=== PATIENT | female | born 1990 | race Caucasian/White ===

== ENCOUNTER 2017-10-30 15:11 | Emergency (ER) | payer SELFPAY ==
[~2017-10-30] VITALS: Ht 157.5 cm; Wt 66.2 kg
[2017-10-30 15:13] VITALS: BP 119/78
[2017-10-30 16:00] LABS: Eosinophils # (auto) 0.1 uL; Hemoglobin 10.1 g/dL (12.2-16.2); Lymphocytes # (auto) 0.6 uL; Mean Corpuscular Hgb Conc. 31.4 g/dL (32.0-36.0); Neutrophils % (auto) 86.4 % (37.0-80.0); White Blood Cell 10.9 10^3/uL (4.4-10.8)
[2017-10-30 16:01] LABS: Basophils # (auto) 0.1 uL; Basophils % (auto) 0.5 % (0.0-2.0); Eosinophils % (auto) 0.8 % (0.0-7.0); Hematocrit 32.3 % (36.0-46.0); Lymphocytes % (auto) 5.7 % (10.0-50.0); Mean Corpuscular Hemoglobin 22.1 pg (28.0-32.0); Mean Corpuscular Volume 70.6 fL (80.0-100.0); Monocytes # (auto) 0.7 uL; Monocytes % (auto) 6.6 % (0.0-12.0); Neutrophils # (auto) 9.4 uL; Platelet Count (auto) 398 10^3/uL (140-450); Red Blood Cells 4.57 10^6/uL (4.0-5.20); Red Cell Distribution Width 18.4 % (11.8-14.3)
[2017-10-30 16:10] LABS: Albumin 3.3 g/dL (3.4-5.0); BUN/Creatinine Ratio 9.9; Calcium 8.3 mg/dL (8.5-10.1); Potassium 3.5 mmol/L (3.5-5.1)
[2017-10-30 16:13] LABS: Bilirubin, Total 0.4 mg/dL (0.2-1.0); Total Protein 7.4 g/dL (6.4-8.2)
[2017-10-30 17:22] LABS: Urine Bacteria NONE SEEN /hpf (None Seen); Urine Blood Negative /uL (Negative); Urine Hyaline Cast FEW /lpf (0 - 2); Urine Mucus MODERATE (None Seen); Urine Specific Gravity 1.048 (1.001-1.035); Urine WBC 7 /hpf (0 - 5)
== END 2017-10-30 17:30 | disposition left against medical advice (07) ==
LOC: ER 15:11
DX: R11.2 Nausea with vomiting, unspecified (principal); R10.9 Unspecified abdominal pain; Z53.21 Procedure and treatment not carried out due to patient leaving prior to being seen by health care provider
CPT/HCPCS: 36415; 80053; 81001; 85025

== ENCOUNTER 2019-01-25 11:08 | Inpatient (IN) | payer MEDICAID, OTHER ==
[~2019-01-25] VITALS: Ht 157.5 cm; Wt 24.9 kg
[2019-01-25] MEDS ORDERED: ONDANSETRON HCL 4 MG/2 ML VIAL IV ONE (12:15)
[2019-01-25] MEDS ORDERED: MORPHINE SULF INJ 2 MG/ML SYRINGE 1ML IV ONE (12:15)
[2019-01-25 12:27] LABS: Basophils # (auto) 0 uL; Basophils % (auto) 0.3 % (0.0-2.0); Eosinophils # (auto) 0 uL; Eosinophils % (auto) 0.1 % (0.0-7.0); Hematocrit 39.7 % (36.0-46.0); Lymphocytes # (auto) 0.6 uL; Lymphocytes % (auto) 10.9 % (10.0-50.0); Mean Corpuscular Hemoglobin 28.7 pg (28.0-32.0); Mean Corpuscular Hgb Conc. 32.8 g/dL (32.0-36.0); Mean Corpuscular Volume 87.6 fL (80.0-100.0); Monocytes # (auto) 0.3 uL; Monocytes % (auto) 6.2 % (0.0-12.0); Neutrophils # (auto) 4.2 uL; Neutrophils % (auto) 82.5 % (37.0-80.0); Nucleated Red Blood Cells % 0.1 %; Platelet Count (auto) 272 10^3/uL (140-450); Red Blood Cells 4.53 10^6/uL (4.0-5.20); Red Cell Distribution Width 16.2 % (11.8-14.3); White Blood Cell 5.1 10^3/uL (4.4-10.8)
[2019-01-25 12:51] LABS: Albumin 4.1 g/dL (3.4-5.0); BUN/Creatinine Ratio 17.1; Bilirubin, Total 0.3 mg/dL (0.2-1.0); Calcium 9.7 mg/dL (8.5-10.1); Magnesium 2.2 mg/dL (1.6-2.6)
[2019-01-25] MEDS ORDERED: IOHEXOL 300 MG/ML 100ML BOTTLE IJ ONE (14:21)
[2019-01-25] MEDS ORDERED: LORazepam 2MG/ML-1ML VIAL ONE (15:14)
[2019-01-25] MEDS ORDERED: LORazepam 2MG/ML-1ML VIAL IV ONE (15:15)
[2019-01-25] MEDS ORDERED: LORazepam 0.5 MG TAB PO PRN (17:00)
[2019-01-25] MEDS: MORPHINE SULF INJ 2 MG/ML SYRINGE 1ML IV PRN (20:12)
[2019-01-25] MEDS: ONDANSETRON HCL 4 MG/2 ML VIAL IV PRN (20:13)
--- NOTE | 2019-01-25 20:30 | NUR ---
Telemetry admit from ER [facility] admitted to Telemetry unit after SBAR received. Patient oriented to Ernestine Malik, primary RN, unit, room, bed, and unit policies regarding patient care and visiting hours. Patient now on continuous telemetry monitoring, tele box 79 and telemetry reading on arrival to unit is NSR 82. Patient encouraged to call if they need something. All questions and concerns addressed, patient verbalized understanding. Note:
[2019-01-25] MEDS: FAMOTIDINE 20 MG TAB PO SCH (21:29)
[2019-01-25 22:00] VITALS: BP 123/76
[2019-01-26] MEDS: MORPHINE SULF INJ 2 MG/ML SYRINGE 1ML IV PRN ×2 (04:15→08:23)
[2019-01-26 05:00] VITALS: BP 118/70
[2019-01-26 06:28] LABS: Basophils # (auto) 0 uL; Basophils % (auto) 0.6 % (0.0-2.0); Eosinophils # (auto) 0.1 uL; Eosinophils % (auto) 1.9 % (0.0-7.0); Hematocrit 34.5 % (36.0-46.0); Hemoglobin 11.4 g/dL (12.2-16.2); Lymphocytes % (auto) 22.4 % (10.0-50.0); Mean Corpuscular Hemoglobin 28.6 pg (28.0-32.0); Mean Corpuscular Hgb Conc. 33.1 g/dL (32.0-36.0); Mean Corpuscular Volume 86.5 fL (80.0-100.0); Monocytes # (auto) 0.5 uL; Monocytes % (auto) 11.2 % (0.0-12.0); Neutrophils # (auto) 2.8 uL; Neutrophils % (auto) 63.9 % (37.0-80.0); Platelet Count (auto) 226 10^3/uL (140-450); Red Blood Cells 3.99 10^6/uL (4.0-5.20); Red Cell Distribution Width 15.9 % (11.8-14.3); White Blood Cell 4.4 10^3/uL (4.4-10.8)
[2019-01-26 06:29] LABS: Potassium 3.3 mmol/L (3.5-5.1)
[2019-01-26 06:33] LABS: Albumin 3.1 g/dL (3.4-5.0); Calcium 8.2 mg/dL (8.5-10.1)
[2019-01-26 06:36] LABS: Bilirubin, Total 0.3 mg/dL (0.2-1.0); Total Protein 6.8 g/dL (6.4-8.2)
--- NOTE | 2019-01-26 08:00 | NUR ---
Opening Shift Note Assumed care of patient, awake and alert. No S/S of distress/SOB or pain. Instructed on POC and to call for assist PRN, will continue to monitor for changes Q1hr and PRN.
[2019-01-26] MEDS: ONDANSETRON HCL 4 MG/2 ML VIAL IV PRN (08:23)
[2019-01-26 09:00] VITALS: BP 107/72
[2019-01-26] MEDS: FAMOTIDINE 20 MG TAB PO SCH (09:35)
[2019-01-26] MEDS ORDERED: ENOXAPARIN SOD 40 MG/0.4 ML SYRINGE SC SCH (10:00)
[2019-01-26 11:46] VITALS: BP 107/72
[2019-01-26 13:00] VITALS: BP 109/77
--- NOTE | 2019-01-26 13:15 | NUR ---
Discharge Patient seen by Dr. Harrison and Dr. Church, cleared for discharge.
--- NOTE | 2019-01-26 15:20 | NUR ---
Discharge instructions given as ordered. Encourage to follow up with PMD as instructed. All questions and concerns addressed. Patient verbalized understanding. Medication reconciliation form completed and copy given to patient. IV removed with catheter intact, and pressure dressing applied. Telemetry unit returned to ICU. Patient taken to vehicle via wheelchair with all personal belongings, accompanied by staff and family member. No distress noted at time of departure.
== END 2019-01-26 15:20 | disposition home or self-care (01) | DRG 249 ==
LOC: EDBD 11:08 → ER 11:08 → TELE 11:09 → TELE-WESTW 20:32
PROVIDERS: ADMIT Internal Medicine; ATTEND Internal Medicine
DX: K52.9 Noninfective gastroenteritis and colitis, unspecified (principal); C78.7 Secondary malignant neoplasm of liver and intrahepatic bile duct; C18.7 Malignant neoplasm of sigmoid colon; R16.0 Hepatomegaly, not elsewhere classified; F17.200 Nicotine dependence, unspecified, uncomplicated; R11.2 Nausea with vomiting, unspecified; F41.9 Anxiety disorder, unspecified; M43.06 Spondylolysis, lumbar region; Z82.49 Family history of ischemic heart disease and other diseases of the circulatory system; Z90.49 Acquired absence of other specified parts of digestive tract; Z93.3 Colostomy status; Z83.3 Family history of diabetes mellitus; Z80.3 Family history of malignant neoplasm of breast; Z80.0 Family history of malignant neoplasm of digestive organs; Z80.51 Family history of malignant neoplasm of kidney; Z85.118 Personal history of other malignant neoplasm of bronchus and lung; Z79.899 Other long term (current) drug therapy
CPT/HCPCS: 36415; 71045; 74177; 80053; 83735; 84702; 85025; 93005; 94761; 96374; 96375; G0378; J2405